=== PATIENT | female | born 1985 | race African-American/Black ===

== ENCOUNTER 2021-02-09 12:48 | Emergency (ER) | payer OTHER ==
[2021-02-09 14:07] LABS: HEMOGLOBIN 13.9 gm/dl (12.3-15.3); RED BLOOD COUNT 4.41 M/UL (4.00-5.10); WHITE BLOOD COUNT 13.4 K/UL (4.5-11.0)
[2021-02-09 14:24] LABS: BUN/CREATININE RATIO 12 (0-10)
[2021-02-10] MEDS ORDERED: ZOFRAN4 MG PO (10:55)
== END 2021-02-10 11:35 | disposition home or self-care (01) ==
LOC: ER1 12:48
PROVIDERS: Physician Assistant
DX: N13.2 Hydronephrosis with renal and ureteral calculous obstruction (principal); K59.00 Constipation, unspecified; R31.9 Hematuria, unspecified; E10.9 Type 1 diabetes mellitus without complications; Z20.822 Contact with and (suspected) exposure to COVID-19; F17.200 Nicotine dependence, unspecified, uncomplicated; Z88.0 Allergy status to penicillin; Z88.2 Allergy status to sulfonamides; Z90.710 Acquired absence of both cervix and uterus
CPT/HCPCS: 80053; 81001; 82009; 82803; 82962; 83690; 85025; 96374; 96375; 96376; 99284; C9113; J1885; J2270; J2405; J2550; U0002